=== PATIENT | male | born 1995 | race Caucasian/White ===

== ENCOUNTER → 2020-08-17 | Outpatient (CLI) | payer OTHER | LOC: M LAB 14:34 | PROVIDERS: ATTEND Obstetrics & Gynecology | DX: N46.8 Other male infertility (principal) ==

== ENCOUNTER → 2020-08-17 | Outpatient (REF) | payer OTHER ==
[2020-08-17 15:15] LABS: SEMEN APPEARANCE OPAQUE (OPAQUE); SEMEN VISCOSITY LIQUID (LIQUID); SEMEN VOLUME 4.5 ml (2.0-5.0); WBC CONCENTRATION <=1 M/ml (<=1 M/ml)
[2020-08-17 15:16] LABS: SPERM CONCENTRATION 97.9 M/ml (>=15.0)
== END ==
LOC: M LAB REF 15:06
PROVIDERS: ATTEND Obstetrics & Gynecology
DX: N46.8 Other male infertility (principal)

== ENCOUNTER → 2020-08-25 | Outpatient (CLI) | payer SELFPAY | LOC: M LABSMTC 11:03 | PROVIDERS: ATTEND Pediatrics | DX: Z20.822 Contact with and (suspected) exposure to COVID-19 (principal) ==

== ENCOUNTER 2021-10-11 10:59 | Day surgery (SDC) | payer OTHER ==
[~2021-10-11] VITALS: Ht 182.9 cm; Wt 96.3 kg
[~2021-10-11 10:59] MED LIST: ALLE180T33 PO; AUGM875T28 PO; HYDR-3713 PO; HYDR-3715 PO; LR 1,000 ML IV ONE; MULT1TAB8 PO
[2021-10-11] MEDS ORDERED: propofoL 200 MG/20 ML VIAL As Ordered ONE ×2 (11:52→11:56)
[2021-10-11] MEDS ORDERED: ROCURONIUM BROMIDE 50 MG/5 ML VIAL As Ordered ONE ×2 (11:52→12:59)
[2021-10-11] MEDS ORDERED: MIDAZOLAM INJ 2MG/2ML VIAL (J2250 PER 1MG) As Ordered ONE (11:52)
[2021-10-11] MEDS ORDERED: LIDOCAINE 2% 100MG/5ML SDV (FOR ANES.) As Ordered ONE (11:52)
[2021-10-11] MEDS ORDERED: fentaNYL 100 MCG/2 ML INJECTION As Ordered ONE (11:53)
[2021-10-11] MEDS ORDERED: OXYMETAZOLINE 0.05% NASAL SPRAY (AFRIN) As Ordered ONE (12:29)
[2021-10-11] MEDS ORDERED: LIDOCAINE W/EPINEPHRINE 1% 20ML VIAL As Ordered ONE (12:29)
[2021-10-11] MEDS ORDERED: COCAINE 4% 4ML NASAL SOLUTION BTL As Ordered ONE (12:30)
[2021-10-11] MEDS ORDERED: ONDANSETRON 4MG/2ML VIAL As Ordered ONE (12:57)
[2021-10-11] MEDS ORDERED: dexameTHASONE 4 MG/ML 1ML VIAL (J1100 PER 1MG) As Ordered ONE (12:57)
[2021-10-11] MEDS ORDERED: HYDROmorphone HCL 2MG/ML 1ML VIAL As Ordered ONE (13:12)
[2021-10-11] MEDS ORDERED: ePHEDrine SULFATE 25 MG/5 ML(5MG/ML) SYRINGE As Ordered ONE (13:28)
[2021-10-11] MEDS ORDERED: METOCLOPRAMIDE INJ 10MG/2ML VIAL (J2765 PER 1) IV PRN (14:20)
[2021-10-11] MEDS ORDERED: LR 1,000 ML IV SCH ×2 (14:20)
[2021-10-11] MEDS ORDERED: PERCOCET 5MG/325MG TAB PO PRN (14:20)
[2021-10-11] MEDS ORDERED: fentaNYL 100 MCG/2 ML INJECTION IV PRN (14:20)
[2021-10-11] MEDS ORDERED: ONDANSETRON 4MG/2ML VIAL IV PRN ×2 (14:20→14:25)
[2021-10-11] MEDS ORDERED: ANEXSIA, NORCO 7.5MG/325MG TABLET(HYDROCODONE/APAP) PO PRN (14:25)
[2021-10-11] MEDS ORDERED: MORPHINE 10 MG/ML 1ML VIAL (J2270) IV PRN (14:25)
[2021-10-11 15:26] VITALS: BP 148/82
== END 2021-10-11 15:39 | disposition home or self-care (01) ==
LOC: M SDC 10:59
PROVIDERS: ATTEND Otolaryngology
DX: J34.2 Deviated nasal septum (principal); J34.3 Hypertrophy of nasal turbinates; Z87.09 Personal history of other diseases of the respiratory system; Z88.0 Allergy status to penicillin
CPT/HCPCS: 30140; 30520; 88300; C9046; J1100; J1170; J2250; J2405; J3010